=== PATIENT | female | born 1955 | race African-American/Black ===

== ENCOUNTER 2017-10-07 17:30 | Emergency (ER) | payer OTHER ==
[~2017-10-07] VITALS: Ht 154.9 cm; Wt 114.5 kg
[~2017-10-07 17:30] MED LIST: BENTYL20 MG PO; CETIRIZINE HCL10 M2 PO; CITALOPRAM HBR40 MG PO; Coumadin,Jantoven PO; DICYCLOMINE HCL20 MG PO; FLAGYL500 MG PO; Feosol PO; LEVAQUIN750 MG PO; LORTAB 5-325 M1 EACH PO; MELOXICAM7.5 MG PO; MOTRIN600 MG PO; NAPROXEN500 MG PO; Norvasc PO; PERCOCET 5/31 TABLET PO; PRINIVIL20 MG PO; Percocet 5/325,Endoc PO; Pravachol PO; TYLENOL WITH C1 EACH PO; ZESTORETIC 20-1 EAC1 NG
[2017-10-07 18:08] LABS: BASOPHIL (%) 0.4 % (0-1); EOSINOPHIL (%) 0.5 % (0-5); EOSINOPHIL COUNT 0.1 K/uL (0-0.3); HEMATOCRIT 42.8 % (36.0-46.0); HEMOGLOBIN 15.2 G/DL (11.9-15.5); IMMATURE GRANULOCYTE (%) 0.3 % (0.0-0.7); LYMPHOCYTE (%) 17.5 % (15-42); LYMPHOCYTE COUNT 1.7 K/uL (1.0-2.8); MCHC 35.5 G/DL (30.0-36.0); MCV 84.4 FL (83-99); MONOCYTE (%) 3.1 % (3-12); MONOCYTE COUNT 0.3 K/uL (0-0.8); NEUTROPHIL (%) 78.2 % (45-76); NEUTROPHIL COUNT 7.8 K/uL (1.8-6.4); PLATELET COUNT 276 K/uL (156-360); RBC DIS.WIDTH-CV 12.3 % (11.8-14.6); RBC DIS.WIDTH-SD 36.9 % (39-53); RED BLOOD COUNT 5.07 M/uL (3.80-5.20); WHITE BLOOD COUNT 9.9 K/uL (4.1-10.2)
[2017-10-07 18:18] LABS: ALBUMIN 4.7 g/dL (3.2-4.8); CHLORIDE 107 mEq/L (99-109); POTASSIUM 4.2 mEq/L (3.7-5.4); SODIUM 140 mEq/L (136-147)
[2017-10-07 18:20] LABS: GLUCOSE 145 mg/dL (70-99)
[2017-10-07 18:21] LABS: TOTAL PROTEIN 8.5 g/dL (6.4-8.3)
[2017-10-07 18:22] LABS: TOTAL BILIRUBIN 0.6 mg/dL (0.0-1.0)
[2017-10-07 18:24] LABS: ALKALINE PHOSPHATASE 146 IU/L (3-129); CREATININE 0.9 mg/dL (0.6-1.3); GFR ESTIMATE (CALCULATED) > 59 mL/min/
[2017-10-07 18:25] LABS: UREA NITROGEN (BUN) 17 mg/dL (9-23)
[2017-10-07 18:26] LABS: AST (GOT) 23 IU/L (2-34)
[2017-10-07 18:27] LABS: ALT (GPT) 15 IU/L (3-49); LIPASE 64 U/L (1.0-51.0)
[2017-10-07 18:29] LABS: TROP-I INTERPRETATION NEGATIVE; TROPONIN-I < 0.01 ng/mL (0.0-0.30)
[2017-10-07 21:52] LABS: APPEARANCE CLEAR ((CLEAR)); BILIRUBIN NEGATIVE; BLOOD SMALL; COLOR STRAW ((YELLOW)); GLUCOSE (STRIP) NEGATIVE; KETONES 20; LEUKOCYTES NEGATIVE; NITRITE NEGATIVE; PROTEIN (STRIP) 100; SPECIFIC GRAVITY 1.013 (1.000-1.030); UROBILINOGEN 0.2 MG/DL (0.2-1.0)
[2017-10-07 22:03] LABS: BACTERIA NONE SEEN /HPF; EPITHELIAL CELLS RARE /HPF; MUCUS TRACE /LPF; UCUL ADDED? NO; WHITE BLOOD CELLS 0-5 /HPF (0-5)
[2017-10-07] MEDS ORDERED: ZOFRAN ODT4 MG PO (23:10)
[2017-10-08 00:10] VITALS: BP 174/105
== END 2017-10-08 00:14 | disposition home or self-care (01) ==
LOC: EME 17:30
PROVIDERS: Emergency Medicine
DX: K52.9 Noninfective gastroenteritis and colitis, unspecified (principal); R07.9 Chest pain, unspecified; R05 Cough; I10 Essential (primary) hypertension; E78.5 Hyperlipidemia, unspecified; F17.200 Nicotine dependence, unspecified, uncomplicated
CPT/HCPCS: 71045; 80053; 81003; 83690; 83735; 84484; 85025; 93005; 99281; 99285; J1630; J2405; J2765; S0028

== ENCOUNTER 2018-02-02 16:54 | Emergency (ER) | payer OTHER ==
[~2018-02-02] VITALS: Ht 160 cm; Wt 120.5 kg
[~2018-02-02 16:54] MED LIST changes: +ZOFRAN ODT4 MG PO
[2018-02-02 18:29] LABS: BASOPHIL (%) 0.8 % (0-1); BASOPHIL COUNT 0.1 K/uL (0-0.1); EOSINOPHIL (%) 4.6 % (0-5); EOSINOPHIL COUNT 0.4 K/uL (0-0.3); HEMATOCRIT 39.4 % (36.0-46.0); HEMOGLOBIN 13.5 G/DL (11.9-15.5); IMMATURE GRANULOCYTE (%) 0.1 % (0.0-0.7); LYMPHOCYTE (%) 40.6 % (15-42); LYMPHOCYTE COUNT 3.6 K/uL (1.0-2.8); MCH 29.9 PG (29.0-34.0); MCHC 34.3 G/DL (30.0-36.0); MCV 87.4 FL (83-99); MONOCYTE (%) 7.6 % (3-12); MONOCYTE COUNT 0.7 K/uL (0-0.8); NEUTROPHIL (%) 46.3 % (45-76); NEUTROPHIL COUNT 4.1 K/uL (1.8-6.4); PLATELET COUNT 239 K/uL (156-360); RBC DIS.WIDTH-CV 12.8 % (11.8-14.6); RBC DIS.WIDTH-SD 40.6 % (39-53); RED BLOOD COUNT 4.51 M/uL (3.80-5.20); WHITE BLOOD COUNT 8.8 K/uL (4.1-10.2)
[2018-02-02 18:45] LABS: CHLORIDE 109 mEq/L (99-109); POTASSIUM 3.7 mEq/L (3.7-5.4); SODIUM 143 mEq/L (136-147)
[2018-02-02 18:46] LABS: MAGNESIUM 1.9 mg/dL (1.3-2.7)
[2018-02-02 18:47] LABS: GLUCOSE 86 mg/dL (70-99)
[2018-02-02 18:51] LABS: GFR ESTIMATE (CALCULATED) > 59 mL/min/
[2018-02-02 18:52] LABS: UREA NITROGEN (BUN) 18 mg/dL (9-23)
[2018-02-02 19:00] LABS: TROP-I INTERPRETATION NEGATIVE; TROPONIN-I < 0.01 ng/mL (0.0-0.30)
[2018-02-02 19:54] LABS: THYROTROPIN (TSH) 1.6 MIU/L (0.4-5.5)
[2018-02-02 20:20] VITALS: BP 154/99
== END 2018-02-02 20:26 | disposition home or self-care (01) ==
LOC: EME 16:54
PROVIDERS: Emergency Medicine
DX: R00.2 Palpitations (principal); R42 Dizziness and giddiness; R07.9 Chest pain, unspecified; R91.8 Other nonspecific abnormal finding of lung field; I10 Essential (primary) hypertension; E78.5 Hyperlipidemia, unspecified; Z86.19 Personal history of other infectious and parasitic diseases; F17.200 Nicotine dependence, unspecified, uncomplicated
CPT/HCPCS: 71045; 80048; 83735; 84443; 84484; 85025; 93005; 99281; 99285; J7040